=== PATIENT | female | born 1940 | race Native Hawaiian/Other Pacific Islander ===

== ENCOUNTER 2017-01-28 15:31 | Outpatient (CLI) | payer OTHER ==
[2017-01-28 15:44] LABS: PLATELET COUNT 555 K/uL (152-353)
[2017-01-28 16:14] LABS: POTASSIUM 4.4 mmol/L (3.6-5.2)
[2017-01-29] MEDS ORDERED: VALSARTAN320 MG PO (10:49)
[2017-01-29] MEDS ORDERED: MICROZIDE12.5 MG OR (10:50)
[2017-01-29] MEDS ORDERED: CITALOPRAM20 MG PO (10:51)
[2017-01-29] MEDS ORDERED: AMLO2.5T PO (10:52)
[2017-01-29] MEDS ORDERED: ADVIL200 M1 OR (10:55)
[2017-01-29] MEDS ORDERED: CYCL10TA35 PO (10:55)
[2017-01-29] MEDS ORDERED: TRAM50TA PO (10:57)
[2017-01-29] MEDS ORDERED: GLIM2TAB PO (10:57)
[2017-01-29] MEDS ORDERED: METO25TA4 OR (10:58)
[2017-01-29] MEDS ORDERED: GLUMETZA500 MG PO (10:59)
[2017-01-29] MEDS ORDERED: ALAVERT10 M2 PO (11:00)
== END 2017-01-28 19:10 | disposition home or self-care (01) ==
LOC: LAB 15:31
PROVIDERS: Nurse Practitioner Family
DX: I10 Essential (primary) hypertension (principal); E11.9 Type 2 diabetes mellitus without complications; I25.10 Atherosclerotic heart disease of native coronary artery without angina pectoris; Z79.899 Other long term (current) drug therapy; Z51.81 Encounter for therapeutic drug level monitoring
CPT/HCPCS: 80053; 80061; 83036; 84439; 84443; 85007; 85027

== ENCOUNTER 2017-01-28 17:48 | Inpatient (IN) | payer OTHER ==
[~2017-01-28] VITALS: Ht 157.5 cm; Wt 54.7 kg
[2017-01-28 19:03] VITALS: BP 160/43; TEMP 99.3
[2017-01-28 19:31] LABS: PLATELET COUNT 536 K/uL (152-353)
[2017-01-28 20:00] VITALS: BP 133/111; TEMP 98.5
[2017-01-28 23:13] VITALS: BP 133/111; TEMP 98.5; Ht 157.5 cm; Wt 54.7 kg
[2017-01-29] VITALS: BP 142/48; TEMP 98.4
[2017-01-29 04:00] VITALS: BP 177/74; TEMP 98.8
[2017-01-29 08:00] VITALS: BP 155/59; TEMP 98.8
[2017-01-29] MEDS ORDERED: VALSARTAN320 MG PO (10:49)
[2017-01-29] MEDS ORDERED: MICROZIDE12.5 MG OR (10:50)
[2017-01-29] MEDS ORDERED: CITALOPRAM20 MG PO (10:51)
[2017-01-29] MEDS ORDERED: AMLO2.5T PO (10:52)
[2017-01-29] MEDS ORDERED: ADVIL200 M1 OR (10:55)
[2017-01-29] MEDS ORDERED: CYCL10TA35 PO (10:55)
[2017-01-29] MEDS ORDERED: GLIM2TAB PO (10:57)
[2017-01-29] MEDS ORDERED: TRAM50TA PO (10:57)
[2017-01-29] MEDS ORDERED: METO25TA4 OR (10:58)
[2017-01-29] MEDS ORDERED: GLUMETZA500 MG PO (10:59)
[2017-01-29] MEDS ORDERED: ALAVERT10 M2 PO (11:00)
[2017-01-29 12:00] VITALS: BP 171/72; TEMP 99.4
[2017-01-29 12:19] LABS: PLATELET COUNT 467 K/uL (152-353)
[2017-01-29 13:52] LABS: POTASSIUM 3.6 mmol/L (3.6-5.2)
[2017-01-29 16:00] VITALS: BP 172/72; TEMP 100
[2017-01-29 20:00] VITALS: BP 180/80; TEMP 98.5
[2017-01-30 00:19] VITALS: BP 174/70; TEMP 98.6
[2017-01-30 04:00] VITALS: BP 157/74; TEMP 98.3
[2017-01-30 05:39] LABS: PLATELET COUNT 454 K/uL (152-353)
[2017-01-30 06:02] LABS: POTASSIUM 3.6 mmol/L (3.6-5.2)
[2017-01-30 08:00] VITALS: BP 154/75; TEMP 98.2
[2017-01-30 12:00] VITALS: BP 159/78; TEMP 98.3
[2017-01-30 16:00] VITALS: BP 161/82; TEMP 98.4
[2017-01-30 20:25] VITALS: BP 164/79; TEMP 98.2
[2017-01-31 01:08] VITALS: BP 178/80; TEMP 98.1
[2017-01-31 04:00] VITALS: BP 183/73; TEMP 98.4
[2017-01-31 05:36] LABS: PLATELET COUNT 425 K/uL (152-353)
[2017-01-31 05:53] LABS: POTASSIUM 3.7 mmol/L (3.6-5.2)
[2017-01-31 08:00] VITALS: BP 174/84; TEMP 98.4
[2017-01-31 12:08] VITALS: BP 176/80; TEMP 98
== END 2017-01-31 15:20 | disposition home or self-care (01) | DRG 812 ==
LOC: ED 17:48 → MED/SURG 19:35
PROVIDERS: Emergency Medicine
PROC: 30253N1 (ICD-10-PCS; principal; 2017-01-28)
PROC: 30253N1 (ICD-10-PCS; 2017-01-29)
DX: D64.89 Other specified anemias (principal); I10 Essential (primary) hypertension; Z86.73 Personal history of transient ischemic attack (TIA), and cerebral infarction without residual deficits; E11.9 Type 2 diabetes mellitus without complications; I25.10 Atherosclerotic heart disease of native coronary artery without angina pectoris; Z79.899 Other long term (current) drug therapy; Z51.81 Encounter for therapeutic drug level monitoring
CPT/HCPCS: 36415; 36430; 80053; 80061; 82607; 82728; 82746; 82747; 82948; 83036; 83540; 83550; 83605; 83615; 83735; 84439; 84443; 85007; 85027; 85044; 86850; 86900; 86901; 86922; 99283; J1940; P9016

== ENCOUNTER 2017-02-01 18:07 | Outpatient (CLI) | payer OTHER ==
[~2017-02-01 18:07] MED LIST: ADVIL200 M1 OR; ALAVERT10 M2 PO; AMLO2.5T PO; CITALOPRAM20 MG PO; CYCL10TA35 PO; GLIM2TAB PO; GLUMETZA500 MG PO; METO25TA4 OR; MICROZIDE12.5 MG OR; TRAM50TA PO; VALSARTAN320 MG PO
== END 2017-02-01 19:11 | disposition home or self-care (01) ==
LOC: LABW 18:07
DX: K92.2 Gastrointestinal hemorrhage, unspecified (principal)
CPT/HCPCS: 82272

== ENCOUNTER 2017-02-02 00:55 | Outpatient (CLI) | payer OTHER | END 2017-02-02 19:21 | disposition home or self-care (01) | LOC: LAB 00:55 | DX: K92.2 Gastrointestinal hemorrhage, unspecified (principal) | CPT/HCPCS: 82272 ==

== ENCOUNTER 2017-02-09 14:17 | Outpatient (CLI) | payer OTHER ==
[2017-02-09 15:09] LABS: PLATELET COUNT 315 K/uL (152-353)
== END 2017-02-09 19:31 | disposition home or self-care (01) ==
LOC: LAB 14:17
PROVIDERS: Nurse Practitioner Family
DX: D64.89 Other specified anemias (principal)
CPT/HCPCS: 85027

== ENCOUNTER 2017-02-13 10:11 | Outpatient (CLI) | payer OTHER ==
[~2017-02-13] VITALS: Ht 157.5 cm; Wt 55.3 kg
[2017-02-13 10:10] VITALS: BP 145/71; TEMP 99.1
== END 2017-02-13 19:10 | disposition home or self-care (01) ==
LOC: INF 10:11
DX: M81.0 Age-related osteoporosis without current pathological fracture (principal)
CPT/HCPCS: 96372; J0897

== ENCOUNTER 2017-08-13 12:40 | Outpatient (CLI) | payer OTHER | END 2017-08-13 13:40 | disposition home or self-care (01) | LOC: MAMMO 12:40 | DX: Z12.31 Encounter for screening mammogram for malignant neoplasm of breast (principal) ==

== ENCOUNTER 2017-09-21 14:34 | Outpatient (CLI) | payer OTHER ==
[2017-09-21 15:19] LABS: PLATELET COUNT 267 K/uL (152-353)
[2017-09-21 15:57] LABS: POTASSIUM 3.6 mmol/L (3.6-5.2)
== END 2017-09-21 15:35 | disposition home or self-care (01) ==
LOC: LAB 14:34
PROVIDERS: Nurse Practitioner Family
DX: I10 Essential (primary) hypertension (principal); E11.9 Type 2 diabetes mellitus without complications; F41.1 Generalized anxiety disorder; F32.89 Other specified depressive episodes; I25.10 Atherosclerotic heart disease of native coronary artery without angina pectoris; Z79.899 Other long term (current) drug therapy; Z51.81 Encounter for therapeutic drug level monitoring
CPT/HCPCS: 80053; 80061; 83036; 84436; 84443; 85027

== ENCOUNTER 2017-09-23 08:48 | Outpatient (CLI) | payer OTHER ==
[~2017-09-23] VITALS: Ht 157.5 cm; Wt 55.3 kg
[2017-09-23 09:30] VITALS: BP 176/83; TEMP 98.1
== END 2017-09-23 09:30 | disposition home or self-care (01) ==
LOC: INF 08:48
DX: M81.0 Age-related osteoporosis without current pathological fracture (principal)
CPT/HCPCS: 96372; J0897

== ENCOUNTER 2018-03-01 18:14 | Outpatient (CLI) | payer OTHER ==
[2018-03-01] MEDS ORDERED: LIPITOR80 MG PO (21:43)
[2018-03-01] MEDS ORDERED: AMLODIPINE BESYLATE PO (21:43)
[2018-03-01] MEDS ORDERED: THERAGRAN-M OR (21:44)
[2018-03-01] MEDS ORDERED: SEROQUEL25 MG OR (21:44)
[2018-03-01] MEDS ORDERED: SEROQUEL50 MG OR (21:44)
[2018-03-01] MEDS ORDERED: THIA100T8 PO (21:45)
[2018-03-01] MEDS ORDERED: CLON0.1D TD (21:46)
[2018-03-01] MEDS ORDERED: GLIM2TAB PO (21:46)
[2018-03-01] MEDS ORDERED: OMEGA 31000 MG OR (21:47)
[2018-03-01] MEDS ORDERED: VITAMIN D3400 UNI1 OR (21:47)
[2018-03-01] MEDS ORDERED: CLOP75TA2 PO (21:48)
[2018-03-01] MEDS ORDERED: NORCO PO (21:51)
[2018-03-01] MEDS ORDERED: CITA20TA2 PO (21:52)
[2018-03-01] MEDS ORDERED: METFORMIN HYDR500 MG PO (21:53)
[2018-03-01] MEDS ORDERED: ALAVERT10 M2 PO (21:53)
[2018-03-01] MEDS ORDERED: FE TABS325 MG PO (21:55)
[2018-03-01] MEDS ORDERED: HYDROCHLOROT12.5 M1 PO (21:55)
[2018-03-01] MEDS ORDERED: PANTOPRAZOLE 40MG TA PO (21:56)
[2018-03-01] MEDS ORDERED: VALSARTAN320 MG PO (21:57)
[2018-03-01] MEDS ORDERED: METOPROLOL25 M1 PO (21:57)
== END 2018-03-01 18:50 | disposition short-term general hospital (02) ==
LOC: AMB 18:14
DX: R41.82 Altered mental status, unspecified (principal)
CPT/HCPCS: A0425; A0429

== ENCOUNTER 2018-03-06 15:41 | Emergency (ER) | payer OTHER ==
[~2018-03-06] VITALS: Ht 157.5 cm; Wt 63.0 kg
[~2018-03-06 15:41] MED LIST changes: +AMLODIPINE BESYLATE PO; +CITA20TA2 PO; +CLON0.1D TD; +CLOP75TA2 PO; +FE TABS325 MG PO; +HYDROCHLOROT12.5 M1 PO; +LIPITOR80 MG PO; +METFORMIN HYDR500 MG PO; +METOPROLOL25 M1 PO; +NORCO PO; +OMEGA 31000 MG OR; +PANTOPRAZOLE 40MG TA PO; +SEROQUEL25 MG OR; +SEROQUEL50 MG OR; +THERAGRAN-M OR; +THIA100T8 PO; +VITAMIN D3400 UNI1 OR
[2018-03-06 19:31] VITALS: BP 175/80; TEMP 98.2
== END 2018-03-06 19:32 | disposition other institution (70) ==
LOC: ED 15:41
DX: S00.83XA Contusion of other part of head, initial encounter (principal); Y04.2XXA Assault by strike against or bumped into by another person, initial encounter; Y92.238 Other place in hospital as the place of occurrence of the external cause
CPT/HCPCS: 36415; 81000; 99283

== ENCOUNTER 2018-05-10 09:34 | Outpatient (CLI) | payer OTHER ==
[~2018-05-10] VITALS: Ht 157.5 cm; Wt 55.3 kg
== END 2018-05-10 19:55 | disposition home or self-care (01) ==
LOC: INF 09:34
DX: M81.0 Age-related osteoporosis without current pathological fracture (principal)
CPT/HCPCS: 36415; 82310; 96372; J0897

== ENCOUNTER 2019-01-24 12:54 | Outpatient (CLI) | payer OTHER | END 2019-01-24 23:03 | disposition home or self-care (01) | LOC: RAD 12:54 | DX: M25.512 Pain in left shoulder (principal) ==

== ENCOUNTER → 2019-03-13 19:48 | Outpatient (CLI) | payer OTHER | END | disposition home or self-care (01) | LOC: AMB 19:48 ==